=== PATIENT | male | born 1980 | race Caucasian/White ===

== ENCOUNTER 2022-03-12 12:42 | Emergency (ER) | payer OTHER ==
[2022-03-12] MEDS ORDERED: HYDROCODON-ACE1 EAC4 PO (17:34)
== END 2022-03-12 18:11 | disposition home or self-care (01) ==
LOC: ER1 12:42
DX: M54.50 Low back pain, unspecified (principal); G89.29 Other chronic pain; I25.10 Atherosclerotic heart disease of native coronary artery without angina pectoris; E11.9 Type 2 diabetes mellitus without complications; I10 Essential (primary) hypertension
CPT/HCPCS: 72128; 72131; 99283

== ENCOUNTER 2022-04-09 13:13 | Emergency (ER) | payer OTHER ==
[~2022-04-09 13:13] MED LIST: HYDROCODON-ACE1 EAC4 PO
[2022-04-09 14:55] LABS: HEMOGLOBIN 14.5 gm/dl (14.0-17.5); RED BLOOD COUNT 4.84 M/UL (4.20-5.50); WHITE BLOOD COUNT 10.2 K/UL (4.5-11.0)
[2022-04-09 15:25] LABS: BUN/CREATININE RATIO 22 (0-10)
[2022-04-09] MEDS ORDERED: NAPROSYN500 MG PO (18:11)
[2022-04-09] MEDS ORDERED: DOXYCYCLINE HY100 M2 PO (18:11)
== END 2022-04-09 19:10 | disposition home or self-care (01) ==
LOC: ER1 13:13
PROVIDERS: Physician Assistant
DX: J32.4 Chronic pansinusitis (principal); H70.92 Unspecified mastoiditis, left ear; H53.8 Other visual disturbances; E11.9 Type 2 diabetes mellitus without complications; E78.5 Hyperlipidemia, unspecified; I10 Essential (primary) hypertension; Z86.73 Personal history of transient ischemic attack (TIA), and cerebral infarction without residual deficits; Z88.0 Allergy status to penicillin; Z88.5 Allergy status to narcotic agent; Z90.49 Acquired absence of other specified parts of digestive tract
CPT/HCPCS: 70450; 80053; 82550; 82553; 84484; 85025; 93005; 99284